=== PATIENT | male | born 1975 | race Caucasian/White ===

== ENCOUNTER 2020-12-01 17:26 | Inpatient (IN) ==
[2020-12-01] MEDS ORDERED: Cefepime HCl 2,000 MG in 0.9 % Sodium Chloride Mini Bag 100 ML IVPB STA (19:01)
[2020-12-01] MEDS ORDERED: 0.9 % Sodium Chloride 1,000 ML IVC ONE (19:01)
[2020-12-01] MEDS ORDERED: Isovue-370 500 ML BOTTLE IVP ONE (19:02)
[2020-12-01] MEDS ORDERED: Ipratropium/Albuterol Neb 3 ML IH ONE (19:02)
[2020-12-01 19:33] LABS: INR 1.2; Prothrombin Time 13.7 Seconds (9.4-12.1)
[2020-12-01 19:42] LABS: Alanine Aminotransferase 26 Units/L (7-52); Albumin 3.4 g/dL (3.5-5.7); Albumin/Globulin Ratio 0.8 (1.1-2.2); Alkaline Phosphatase 75 Units/L (34-104); Aspartate Amino Transferase 35 Units/L (13-39); BUN/Creatinine Ratio 19 (6-26); Bilirubin,Total 0.6 mg/dL (0.3-1.0); Blood Urea Nitrogen 10 mg/dL (6-20); C-Reactive Protein 161 mg/L (Less than 10); Calcium 8.9 mg/dL (8.6-10.3); Carbon Dioxide 27 mEq/L (23-29); Chloride 94 mEq/L (98-107); Globulin 4.1 g/dL (2.4-3.5); Glucose 82 mg/dL (70-105); Osmolality,Calculated 270 (280-300); Potassium 4.2 mEq/L (3.5-5.1); Sodium 131 mEq/L (136-145); Total Protein 7.5 g/dL (6.4-8.9); eGFR For African Americans > 60 (> 60); eGFR For Non-African Americans > 60 (> 60)
[2020-12-01 19:53] LABS: Basophils % 0.2 %; Eosinophils % 0.1 %; Hematocrit 30.3 % (37.5-50.1); Hemoglobin 10.1 g/dL (12.9-16.9); Lymphocytes # 2.5 K/mcL (0.6-4.6); Lymphocytes % 17.9 %; Mean Corpuscular HGB Conc 33.3 g/dL (31.6-35.5); Mean Corpuscular Hemoglobin 27.7 pg (28.0-33.3); Mean Platelet Volume 9.8 fL (9.4-12.4); Monocytes % 7.2 %; Neutrophils # 10.1 K/mcL (1.6-8.9); Platelet Count 187 K/mcL (140-400); Red Blood Count 3.65 M/mcL (4.19-5.50); Red Cell Distribution Width 12.9 % (11.5-14.5); Segmented Neutrophils % 73.6 %; White Blood Count 13.8 K/mcL (4.3-11.1)
[2020-12-01] MEDS ORDERED: Naloxone 0.4 MG/ML INJ IVP PRN ×2 (21:37→23:39)
[2020-12-01] MEDS ORDERED: Ondansetron ODT 4 MG TAB.RAPDIS SL PRN ×2 (21:37→23:39)
[2020-12-01] MEDS ORDERED: 0.9 % Sodium Chloride 1,000 ML IVC SCH ×2 (21:45→23:39)
[2020-12-01] MEDS ORDERED: Vancomycin 1,000 MG VIAL ONE (21:49)
[2020-12-01] MEDS ORDERED: Lidocaine/EPI 1:100k 1% 50 ML VIAL ONE (21:49)
[2020-12-01] MEDS ORDERED: *HR* Midazolam HCl 2 MG/2 ML VIAL ONE (21:50)
[2020-12-01] MEDS ORDERED: *HR* FentaNYL (PF) 100 MCG/2 ML VIAL ONE (21:50)
[2020-12-01] MEDS ORDERED: *HR* Propofol 200 MG/20 ML VIAL IVP ONE (21:50)
[2020-12-01] MEDS ORDERED: Dexamethasone 4 MG/ML VIAL ONE (21:51)
[2020-12-01] MEDS ORDERED: Ondansetron 4 MG/2 ML VIAL ONE (21:51)
[2020-12-01] MEDS ORDERED: Lidocaine -MPF 2% 2 ML VIAL ONE ×2 (21:51→21:53)
[2020-12-01] MEDS ORDERED: *HR* Succinylcholine 200 MG/10 ML VIAL IVP ONE (21:51)
[2020-12-01] MEDS ORDERED: Acetaminophen IV 1,000 MG/100 ML BAG IVPB ONE (21:56)
[2020-12-01] MEDS ORDERED: Famotidine 20 MG/2 ML VIAL ONE (21:56)
[2020-12-01] MEDS ORDERED: Ondansetron 4 MG/2 ML VIAL IVP PRN ×2 (22:02→23:39)
[2020-12-01] MEDS ORDERED: *HR* HYDROMORPHONE 2 MG/ML VIAL ONE (22:22)
[2020-12-01] MEDS: *HR* HYDROmorphone PF 0.5 MG/0.5 ML SYRINGE IVP PRN ×4 (22:55→23:14)
[2020-12-02] MEDS ORDERED: Melatonin 3 MG TABLET PO ONE (01:05)
[2020-12-02 01:24] LABS: Retculocyte # 0.04 M/mcL (0.05-0.10); Reticulocyte % 1.2 % (1.6-2.8)
[2020-12-02 01:25] LABS: Basophils % 0.3 %; Eosinophils % 0.3 %; Hematocrit 30.7 % (37.5-50.1); Lymphocytes # 1.3 K/mcL (0.6-4.6); Lymphocytes % 10.9 %; Mean Corpuscular HGB Conc 32.6 g/dL (31.6-35.5); Mean Corpuscular Hemoglobin 27.2 pg (28.0-33.3); Mean Corpuscular Volume 83.7 fL (83.0-100.0); Mean Platelet Volume 10.1 fL (9.4-12.4); Monocytes # 0.5 K/mcL (0.0-1.3); Monocytes % 3.9 %; Neutrophils # 9.8 K/mcL (1.6-8.9); Platelet Count 175 K/mcL (140-400); Red Blood Count 3.67 M/mcL (4.19-5.50); Red Cell Distribution Width 12.9 % (11.5-14.5); Segmented Neutrophils % 82.6 %; White Blood Count 11.9 K/mcL (4.3-11.1)
[2020-12-02 01:43] LABS: BUN/Creatinine Ratio 16 (6-26); Blood Urea Nitrogen 8 mg/dL (6-20); C-Reactive Protein 161 mg/L (Less than 10); Calcium 8.5 mg/dL (8.6-10.3); Carbon Dioxide 27 mEq/L (23-29); Chloride 102 mEq/L (98-107); Glucose 194 mg/dL (70-105); Osmolality,Calculated 282 (280-300); Potassium 3.8 mEq/L (3.5-5.1); Sodium 134 mEq/L (136-145); eGFR For African Americans > 60 (> 60); eGFR For Non-African Americans > 60 (> 60)
[2020-12-02 01:59] LABS: Thyroid Stimulating Hormone 0.987 mcIU/mL (0.340-5.600)
[2020-12-02 02:09] LABS: Folate 14.7 ng/mL (3.0-16.0)
[2020-12-02] MEDS ORDERED: Cefepime HCl 2,000 MG in Water for inj. (sterile) 20 ML IVP SCH (03:00)
[2020-12-02] MEDS: Cefepime HCl 2,000 MG in Water for inj. (sterile) 20 ML IVP SCH ×3 (03:27→18:12)
[2020-12-02] MEDS ORDERED: Vancomycin 1,250 MG/262.5 ML IV.SOLN IVPB SCH (05:00)
[2020-12-02] MEDS: Vancomycin 1,250 MG/262.5 ML IV.SOLN IVPB SCH ×3 (05:50→20:48)
[2020-12-02] MEDS: *HR* HYDROmorphone (PF) 1 MG/ML SYRINGE IVP PRN ×4 (08:22→20:48)
[2020-12-02] MEDS: Nicotine 2 MG GUM BC PRN (11:14)
[2020-12-02] MEDS: *HR* OxyCODONE/APAP 5/325 TABLET PO PRN (18:13)
[2020-12-02] MEDS ORDERED: *HR* LORazepam 2 MG/ML VIAL IVP ONE (23:21)
[2020-12-03] MEDS: *HR* OxyCODONE/APAP 5/325 TABLET PO PRN (00:55)
[2020-12-03] MEDS: *HR* HYDROmorphone (PF) 1 MG/ML SYRINGE IVP PRN (02:09)
[2020-12-03] MEDS: Cefepime HCl 2,000 MG in Water for inj. (sterile) 20 ML IVP SCH ×2 (02:10→11:56)
[2020-12-03 04:29] LABS: Basophils % 0.3 %; Eosinophils # 0.1 K/mcL (0.0-0.6); Eosinophils % 0.6 %; Hemoglobin 9.9 g/dL (12.9-16.9); Immature Granulocytes % 4.6 % (0-4); Lymphocytes # 2.1 K/mcL (0.6-4.6); Lymphocytes % 21.3 %; Mean Corpuscular HGB Conc 31.9 g/dL (31.6-35.5); Mean Corpuscular Hemoglobin 27.8 pg (28.0-33.3); Mean Corpuscular Volume 87.1 fL (83.0-100.0); Mean Platelet Volume 10.6 fL (9.4-12.4); Monocytes # 0.6 K/mcL (0.0-1.3); Monocytes % 6.2 %; Neutrophils # 6.5 K/mcL (1.6-8.9); Platelet Count 197 K/mcL (140-400); Red Blood Count 3.56 M/mcL (4.19-5.50); Red Cell Distribution Width 12.7 % (11.5-14.5); White Blood Count 9.7 K/mcL (4.3-11.1)
[2020-12-03 04:49] LABS: BUN/Creatinine Ratio 21 (6-26); Blood Urea Nitrogen 12 mg/dL (6-20); Calcium 8.7 mg/dL (8.6-10.3); Carbon Dioxide 26 mEq/L (23-29); Chloride 104 mEq/L (98-107); Glucose 115 mg/dL (70-105); Osmolality,Calculated 283 (280-300); Potassium 3.8 mEq/L (3.5-5.1); Sodium 136 mEq/L (136-145); eGFR For African Americans > 60 (> 60); eGFR For Non-African Americans > 60 (> 60)
[2020-12-03] MEDS: Vancomycin 1,500 MG/265 ML IV.SOLN IVPB SCH ×3 (05:23→20:48)
[2020-12-03] MEDS ORDERED: *HR* OxyCODONE/APAP 5/325 TABLET PO PRN (08:25)
[2020-12-03] MEDS: Cyanocobalamin (B-12) 1,000 MCG TABLET PO SCH (08:45)
[2020-12-03] MEDS: Nicotine 2 MG GUM BC PRN (08:45)
[2020-12-03] MEDS: Methadone Oral Concentrate 50 MG/5 ML UDC PO SCH (10:36)
[2020-12-03] MEDS: *HR* Heparin 5,000 UNIT/ML VIAL SQ SCH (18:31)
[2020-12-04 05:28] LABS: Hematocrit 35.2 % (37.5-50.1); Hemoglobin 11.1 g/dL (12.9-16.9); Mean Corpuscular HGB Conc 31.5 g/dL (31.6-35.5); Mean Corpuscular Hemoglobin 27.7 pg (28.0-33.3); Mean Corpuscular Volume 87.8 fL (83.0-100.0); Mean Platelet Volume 10.8 fL (9.4-12.4); Platelet Count 307 K/mcL (140-400); Red Blood Count 4.01 M/mcL (4.19-5.50); White Blood Count 7.3 K/mcL (4.3-11.1)
[2020-12-04 05:56] LABS: BUN/Creatinine Ratio 25 (6-26); Blood Urea Nitrogen 15 mg/dL (6-20); Calcium 9.1 mg/dL (8.6-10.3); Carbon Dioxide 28 mEq/L (23-29); Chloride 101 mEq/L (98-107); Glucose 70 mg/dL (70-105); Osmolality,Calculated 283 (280-300); Potassium 4.1 mEq/L (3.5-5.1); Sodium 137 mEq/L (136-145); eGFR For African Americans > 60 (> 60); eGFR For Non-African Americans > 60 (> 60)
[2020-12-04 06:02] LABS: Lymphocytes # 3.5 K/mcL (0.6-4.6); Monocytes # 0.2 K/mcL (0.0-1.3); Neutrophils # 3.2 K/mcL (1.6-8.9); Reactive Lymphocytes Present (Not Present)
[2020-12-04 06:03] LABS: Platelet Estimate Normal (Normal)
[2020-12-04] MEDS: *HR* Heparin 5,000 UNIT/ML VIAL SQ SCH ×2 (06:05→18:03)
[2020-12-04] MEDS: Vancomycin 1,500 MG/265 ML IV.SOLN IVPB SCH (06:08)
[2020-12-04] MEDS: Cyanocobalamin (B-12) 1,000 MCG TABLET PO SCH (08:15)
[2020-12-04] MEDS: Methadone Oral Concentrate 50 MG/5 ML UDC PO SCH (08:15)
[2020-12-04] MEDS: Nicotine 2 MG GUM BC PRN (09:05)
[2020-12-04] MEDS ORDERED: Vancomycin 1,250 MG/262.5 ML IV.SOLN IVPB SCH (14:00)
[2020-12-04] MEDS ORDERED: Lidocaine/EPI 1:100k 1% 50 ML VIAL ONE ×2 (16:07→18:31)
[2020-12-04] MEDS ORDERED: *HR* Propofol 200 MG/20 ML VIAL IVP ONE (18:38)
[2020-12-04] MEDS ORDERED: Lidocaine -MPF 2% 2 ML VIAL ONE (18:38)
[2020-12-04] MEDS ORDERED: Dexamethasone 4 MG/ML VIAL ONE (19:09)
[2020-12-04] MEDS ORDERED: Ondansetron 4 MG/2 ML VIAL ONE (19:09)
[2020-12-04] MEDS ORDERED: Ketorolac 30 MG/ML VIAL ONE (19:11)
[2020-12-04] MEDS ORDERED: Acetaminophen IV 1,000 MG/100 ML BAG IVPB ONE (19:48)
[2020-12-04] MEDS ORDERED: Ondansetron ODT 4 MG TAB.RAPDIS SL PRN (20:18)
[2020-12-04] MEDS ORDERED: Naloxone 0.4 MG/ML INJ IVP PRN (20:18)
[2020-12-04] MEDS: Vancomycin 1,250 MG/262.5 ML IV.SOLN IVPB SCH (23:13)
[2020-12-05] MEDS: *HR* Heparin 5,000 UNIT/ML VIAL SQ SCH ×2 (06:23→14:41)
[2020-12-05] MEDS: Vancomycin 1,250 MG/262.5 ML IV.SOLN IVPB SCH ×2 (06:24→13:16)
[2020-12-05 07:01] VITALS: BP 111/73
[2020-12-05] MEDS ORDERED: Cyanocobalamin (B-12) 1,000 MCG TABLET PO SCH (09:00)
[2020-12-05] MEDS ORDERED: Methadone Oral Concentrate 50 MG/5 ML UDC PO SCH (09:00)
[2020-12-05] MEDS: Nicotine 2 MG GUM BC PRN ×2 (10:38→13:14)
== END 2020-12-05 15:05 | disposition left against medical advice (07) | DRG 710 ==
LOC: 3NENU 17:26 → EMEROOARM 17:26 → SUATTDRO 21:42 → 3NENU 21:55 → SUATTDRO 12-03 17:15
PROVIDERS: ADMIT Student in an Organized Health Care Education/Training Program; ATTEND Internal Medicine

== ENCOUNTER 2020-12-06 09:28 | Observation (INO) ==
[2020-12-06] MEDS ORDERED: Vancomycin 1,250 MG/262.5 ML IV.SOLN IVPB ONE (12:00)
[2020-12-06 12:27] LABS: Basophils # 0.1 K/mcL (0.0-0.2); Eosinophils # 0.1 K/mcL (0.0-0.6); Eosinophils % 1.2 %; Hematocrit 35.9 % (37.5-50.1); Hemoglobin 11.4 g/dL (12.9-16.9); Immature Granulocytes % 7.2 % (0-4); Lymphocytes # 2.9 K/mcL (0.6-4.6); Lymphocytes % 31.6 %; Mean Corpuscular HGB Conc 31.8 g/dL (31.6-35.5); Mean Corpuscular Hemoglobin 27.5 pg (28.0-33.3); Mean Corpuscular Volume 86.7 fL (83.0-100.0); Mean Platelet Volume 9.8 fL (9.4-12.4); Monocytes # 0.5 K/mcL (0.0-1.3); Monocytes % 5.8 %; Neutrophils # 4.8 K/mcL (1.6-8.9); Platelet Count 346 K/mcL (140-400); Red Blood Count 4.14 M/mcL (4.19-5.50); Segmented Neutrophils % 53.2 %; White Blood Count 9.1 K/mcL (4.3-11.1)
[2020-12-06 12:31] LABS: BUN/Creatinine Ratio 24 (6-26); Blood Urea Nitrogen 19 mg/dL (6-20); Calcium 9.4 mg/dL (8.6-10.3); Carbon Dioxide 29 mEq/L (23-29); Chloride 101 mEq/L (98-107); Glucose 103 mg/dL (70-105); Osmolality,Calculated 287 (280-300); Sodium 137 mEq/L (136-145); eGFR For African Americans > 60 (> 60); eGFR For Non-African Americans > 60 (> 60)
[2020-12-06] MEDS ORDERED: Ondansetron 4 MG/2 ML VIAL IVP PRN (13:41)
[2020-12-06] MEDS ORDERED: Naloxone 0.4 MG/ML INJ IVP PRN (13:41)
[2020-12-06] MEDS ORDERED: Melatonin 3 MG TABLET PO PRN (13:41)
[2020-12-06] MEDS ORDERED: *HR* OxyCODONE/APAP 10/325 TABLET PO PRN ×2 (13:44→20:00)
[2020-12-06] MEDS ORDERED: *HR* OxyCODONE/APAP 5/325 TABLET PO PRN ×2 (13:44→20:00)
[2020-12-06 14:43] LABS: C-Reactive Protein 20 mg/L (Less than 10)
[2020-12-06] MEDS ORDERED: Nicotine 21 MG PATCH.TD24 TD SCH (16:30)
[2020-12-06] MEDS: Nicotine 2 MG GUM BC PRN (17:15)
[2020-12-06] MEDS: Lactobacillus 1 EACH CAP.SPRINK PO SCH (21:48)
[2020-12-06] MEDS: Vancomycin 1,250 MG/262.5 ML IV.SOLN IVPB SCH (21:48)
[2020-12-07 01:43] LABS: Hematocrit 32.9 % (37.5-50.1); Hemoglobin 10.5 g/dL (12.9-16.9); Mean Corpuscular HGB Conc 31.9 g/dL (31.6-35.5); Mean Corpuscular Hemoglobin 28.3 pg (28.0-33.3); Mean Corpuscular Volume 88.7 fL (83.0-100.0); Mean Platelet Volume 9.4 fL (9.4-12.4); Monocytes # 0.4 K/mcL (0.0-1.3); Platelet Count 258 K/mcL (140-400); Red Blood Count 3.71 M/mcL (4.19-5.50); Red Cell Distribution Width 13.1 % (11.5-14.5); White Blood Count 6.7 K/mcL (4.3-11.1)
[2020-12-07 01:55] LABS: INR 1.1; Prothrombin Time 12.3 Seconds (9.4-12.1)
[2020-12-07 01:58] LABS: BUN/Creatinine Ratio 36 (6-26); Blood Urea Nitrogen 28 mg/dL (6-20); Calcium 8.6 mg/dL (8.6-10.3); Carbon Dioxide 29 mEq/L (23-29); Chloride 102 mEq/L (98-107); Glucose 113 mg/dL (70-105); Osmolality,Calculated 286 (280-300); Potassium 4.5 mEq/L (3.5-5.1); Sodium 135 mEq/L (136-145); eGFR For African Americans > 60 (> 60); eGFR For Non-African Americans > 60 (> 60)
[2020-12-07 02:38] LABS: Lymphocytes # 1.5 K/mcL (0.6-4.6); Neutrophils # 4.8 K/mcL (1.6-8.9); Platelet Estimate Normal (Normal); Reactive Lymphocytes Present (Not Present)
[2020-12-07] MEDS: Vancomycin 1,250 MG/262.5 ML IV.SOLN IVPB SCH (03:59)
[2020-12-07 06:23] LABS: Amphetamine Screen,Urine Positive ng/mL (Cutoff=1000); Barbiturate Screen,Urine Negative ng/mL (Cutoff=200); Benzodiazepines Screen,Urine Negative ng/mL (Cutoff=200); Cannabinoid Screen,Urine Negative ng/mL (Cutoff = 50); Cocaine Screen,Urine Negative ng/mL (Cutoff= 300); Opiate Screen,Urine Negative ng/mL (Cutoff=300); Phencyclidine Screen,Urine Negative ng/mL (Cutoff=25)
[2020-12-07 06:50] VITALS: BP 114/68
[2020-12-07] MEDS: Lactobacillus 1 EACH CAP.SPRINK PO SCH (08:09)
[2020-12-07] MEDS: Nicotine 2 MG GUM BC PRN (08:55)
[2020-12-07] MEDS ORDERED: Methadone Oral Concentrate 50 MG/5 ML UDC PO SCH (09:00)
== END 2020-12-07 10:35 | disposition home or self-care (01) ==
LOC: 3NENU 09:28 → EMEROOARM 09:28 → 3NENU 14:53
PROVIDERS: ADMIT Internal Medicine; ATTEND Internal Medicine

== ENCOUNTER 2020-12-11 08:49 | Observation (INO) ==
[2020-12-11] MEDS ORDERED: Ondansetron 4 MG/2 ML VIAL IVP ONE (09:25)
[2020-12-11 10:14] LABS: Basophils % 0.3 %; Eosinophils % 0.4 %; Hematocrit 34.7 % (37.5-50.1); Hemoglobin 11.4 g/dL (12.9-16.9); Immature Granulocytes % 0.7 % (0-4); Lymphocytes % 12.9 %; Mean Corpuscular HGB Conc 32.9 g/dL (31.6-35.5); Mean Corpuscular Hemoglobin 27.7 pg (28.0-33.3); Mean Corpuscular Volume 84.4 fL (83.0-100.0); Mean Platelet Volume 9.9 fL (9.4-12.4); Monocytes # 0.3 K/mcL (0.0-1.3); Monocytes % 4.4 %; Neutrophils # 6.2 K/mcL (1.6-8.9); Platelet Count 190 K/mcL (140-400); Red Blood Count 4.11 M/mcL (4.19-5.50); Red Cell Distribution Width 13.2 % (11.5-14.5); Segmented Neutrophils % 81.3 %; White Blood Count 7.6 K/mcL (4.3-11.1)
[2020-12-11 10:30] LABS: Calcium 8.8 mg/dL (8.6-10.3); Potassium 5.7 mEq/L (3.5-5.1)
[2020-12-11] MEDS ORDERED: 0.9 % Sodium Chloride 1,000 ML IVC ONE (11:03)
[2020-12-11] MEDS ORDERED: Insulin Regular, Human 100 UNIT/ML SUBQ ONE (11:15)
[2020-12-11] MEDS ORDERED: Calcium Gluconate 1gm/50mL 1 GM/50 ML BAG IVPB PRN (11:15)
[2020-12-11] MEDS ORDERED: Isovue-370 500 ML BOTTLE IVP ONE (11:30)
[2020-12-11] MEDS ORDERED: Ondansetron 4 MG/2 ML VIAL IVP PRN (16:23)
[2020-12-11] MEDS ORDERED: Melatonin 3 MG TABLET PO PRN (16:23)
[2020-12-11] MEDS ORDERED: Acetaminophen 325 MG TABLET PO PRN (16:23)
[2020-12-11] MEDS ORDERED: Naloxone 0.4 MG/ML INJ IVP PRN (16:23)
[2020-12-11] MEDS ORDERED: *HR* HYDROcodone/Acet 5/325 mg TABLET PO PRN (16:23)
[2020-12-11] MEDS ORDERED: 0.9 % Sodium Chloride 1,000 ML IVC SCH (16:30)
[2020-12-11 16:50] LABS: Albumin 2.9 g/dL (3.5-5.7); Albumin/Globulin Ratio 0.9 (1.1-2.2); Bilirubin,Direct 0.2 mg/dL (0.0-0.2); Bilirubin,Indirect 0.4 mg/dL (0.0-1.0); Bilirubin,Total 0.6 mg/dL (0.3-1.0); Globulin 3.2 g/dL (2.4-3.5); Magnesium 2.1 mg/dL (1.6-2.6); Phosphorous 4.6 mg/dL (2.7-4.5); Total Protein 6.1 g/dL (6.4-8.9)
[2020-12-11 17:46] LABS: Bilirubin,Urine Negative (Negative); Blood,Urine Moderate (Negative); Clarity,Urine Clear (Clear); Color,Urine Yellow (Yellow); Glucose,Urine (UA) Normal (Normal); Hyaline Casts,Urine Many per lpf (None Seen); Ketones,Urine Negative (Negative); Leukocyte Esterase,Urine Negative (Negative); Mucus,Urine Few per lpf (None-Few); Nitrite,Urine Negative (Negative); PH,Urine 5.5 pH Units (5.0-8.0); Protein,Urine 70 mg/dL (Neg-Trace); RBC,Urine 15-30 per hpf (0-3); Specific Gravity,Urine 1.019 (1.010-1.025); Urobilinogen,Urine Normal (Normal)
[2020-12-11 18:05] LABS: Amphetamine Screen,Urine Positive ng/mL (Cutoff=1000); Barbiturate Screen,Urine Negative ng/mL (Cutoff=200); Benzodiazepines Screen,Urine Negative ng/mL (Cutoff=200); Cannabinoid Screen,Urine Positive ng/mL (Cutoff = 50); Cocaine Screen,Urine Negative ng/mL (Cutoff= 300); Opiate Screen,Urine Positive ng/mL (Cutoff=300); Phencyclidine Screen,Urine Negative ng/mL (Cutoff=25)
[2020-12-11] MEDS: Doxycycline 100 MG CAPSULE PO SCH (20:40)
[2020-12-11] MEDS: Lactobacillus 1 EACH CAP.SPRINK PO SCH (20:40)
[2020-12-11] MEDS ORDERED: Ipratropium/Albuterol Neb 3 ML IH PRN (21:36)
[2020-12-11 21:53] LABS: Potassium 5.5 mEq/L (3.5-5.1)
[2020-12-11] MEDS: 0.9 % Sodium Chloride 1,000 ML IVC SCH (22:19)
[2020-12-12 02:07] LABS: Basophils % 0.2 %; Eosinophils % 0.7 %; Hematocrit 32.1 % (37.5-50.1); Hemoglobin 10.3 g/dL (12.9-16.9); Immature Granulocytes % 0.9 % (0-4); Lymphocytes # 1.6 K/mcL (0.6-4.6); Lymphocytes % 35.9 %; Mean Corpuscular HGB Conc 32.1 g/dL (31.6-35.5); Mean Corpuscular Hemoglobin 27.1 pg (28.0-33.3); Mean Corpuscular Volume 84.5 fL (83.0-100.0); Mean Platelet Volume 10.6 fL (9.4-12.4); Monocytes # 0.3 K/mcL (0.0-1.3); Monocytes % 6.9 %; Neutrophils # 2.4 K/mcL (1.6-8.9); Platelet Count 164 K/mcL (140-400); Red Cell Distribution Width 13.2 % (11.5-14.5); Segmented Neutrophils % 55.4 %; White Blood Count 4.3 K/mcL (4.3-11.1)
[2020-12-12 02:29] LABS: Albumin 2.7 g/dL (3.5-5.7); Bilirubin,Total 0.5 mg/dL (0.3-1.0); Calcium 8.5 mg/dL (8.6-10.3); Globulin 2.8 g/dL (2.4-3.5); Magnesium 2.1 mg/dL (1.6-2.6); Phosphorous 4.4 mg/dL (2.7-4.5); Potassium 4.9 mEq/L (3.5-5.1); Total Protein 5.5 g/dL (6.4-8.9)
[2020-12-12] MEDS: 0.9 % Sodium Chloride 1,000 ML IVC SCH ×3 (02:43→19:37)
[2020-12-12] MEDS ORDERED: hydrOXYzine pamoate 25 MG CAPSULE PO ONE (05:08)
[2020-12-12] MEDS ORDERED: Amoxicillin/Clavulanate 250 MG TABLET PO SCH (08:00)
[2020-12-12] MEDS ORDERED: Nicotine 21 MG PATCH.TD24 TD SCH (09:00)
[2020-12-12] MEDS ORDERED: Methadone Oral Concentrate 50 MG/5 ML UDC PO SCH (09:00)
[2020-12-12] MEDS: Lactobacillus 1 EACH CAP.SPRINK PO SCH ×2 (09:26→19:38)
[2020-12-12] MEDS: Doxycycline 100 MG CAPSULE PO SCH ×2 (09:26→19:38)
[2020-12-12] MEDS: Multivit/Ca/Min/Fe/FA 1 TAB TABLET PO SCH (09:26)
[2020-12-12] MEDS ORDERED: Nicotine 2 MG GUM BC PRN (09:40)
[2020-12-12 11:46] LABS: Uric Acid 9.3 mg/dL (2.3-7.6)
[2020-12-12 12:24] LABS: Sodium, Urine 31.5 mEq/L
[2020-12-13] MEDS: 0.9 % Sodium Chloride 1,000 ML IVC SCH (03:58)
[2020-12-13 04:53] LABS: Calcium 8.1 mg/dL (8.6-10.3); Potassium 4.9 mEq/L (3.5-5.1)
[2020-12-13] MEDS: Methadone Oral Concentrate 50 MG/5 ML UDC PO SCH ×2 (06:02→10:31)
[2020-12-13 07:48] VITALS: BP 156/89
[2020-12-13] MEDS: Doxycycline 100 MG CAPSULE PO SCH (09:59)
[2020-12-13] MEDS: Lactobacillus 1 EACH CAP.SPRINK PO SCH (09:59)
[2020-12-13] MEDS: Multivit/Ca/Min/Fe/FA 1 TAB TABLET PO SCH (10:00)
== END 2020-12-13 11:15 | disposition home or self-care (01) ==
LOC: EMEROOARM 08:49 → 2ANU 08:49 → SUATTDRO 13:06 → 2ANU 13:48
PROVIDERS: ADMIT Internal Medicine; ATTEND Internal Medicine

== ENCOUNTER 2021-02-26 01:50 | Inpatient (IN) ==
[2021-02-26] MEDS ORDERED: Ketorolac 15 MG/ML VIAL IVP ONE (03:01)
[2021-02-26] MEDS ORDERED: Clindamycin 600 MG/50 ML 600 MG/50 ML IV.SOLN IVPB ONE (03:04)
[2021-02-26 04:03] LABS: Basophils % 0.3 %; Eosinophils # 0.1 K/mcL (0.0-0.6); Eosinophils % 1.2 %; Hematocrit 34.1 % (37.5-50.1); Hemoglobin 11.2 g/dL (12.9-16.9); Immature Granulocytes % 0.3 % (0-4); Lymphocytes # 2.7 K/mcL (0.6-4.6); Lymphocytes % 25.2 %; Mean Corpuscular HGB Conc 32.8 g/dL (31.6-35.5); Mean Corpuscular Hemoglobin 27.1 pg (28.0-33.3); Mean Corpuscular Volume 82.6 fL (83.0-100.0); Mean Platelet Volume 9.7 fL (9.4-12.4); Monocytes % 9.7 %; Neutrophils # 6.8 K/mcL (1.6-8.9); Platelet Count 267 K/mcL (140-400); Red Blood Count 4.13 M/mcL (4.19-5.50); Red Cell Distribution Width 13.2 % (11.5-14.5); Segmented Neutrophils % 63.3 %; White Blood Count 10.8 K/mcL (4.3-11.1)
[2021-02-26 04:24] LABS: Calcium 9.2 mg/dL (8.6-10.3); Potassium 3.6 mEq/L (3.5-5.1)
[2021-02-26] MEDS ORDERED: cloNIDine HCL 0.1 MG TABLET PO ONE ×2 (05:14→09:27)
[2021-02-26] MEDS ORDERED: Ondansetron 4 MG/2 ML VIAL IVP ONE (05:15)
[2021-02-26] MEDS ORDERED: Naloxone 0.4 MG/ML INJ IVP PRN (05:23)
[2021-02-26] MEDS: Nicotine 2 MG GUM BC PRN ×2 (05:23→10:27)
[2021-02-26] MEDS ORDERED: Ondansetron 4 MG/2 ML VIAL IVP PRN (05:23)
[2021-02-26] MEDS ORDERED: Acetaminophen 325 MG TABLET PO PRN (05:23)
[2021-02-26] MEDS ORDERED: 0.9 % Sodium Chloride 1,000 ML IVC SCH (05:30)
[2021-02-26] MEDS: Clindamycin 600 MG/50 ML 600 MG/50 ML IV.SOLN IVPB SCH ×2 (07:10→15:29)
[2021-02-26 07:36] LABS: INR 1.1; Prothrombin Time 12.6 Seconds (9.4-12.1)
[2021-02-26 11:36] VITALS: BP 145/92
[2021-02-26] MEDS ORDERED: *HR* LORazepam 2 MG/ML VIAL IVP ONE (12:09)
[2021-02-26 15:00] LABS: Amphetamine Screen,Urine Negative ng/mL (Cutoff=1000); Barbiturate Screen,Urine Negative ng/mL (Cutoff=200); Benzodiazepines Screen,Urine Negative ng/mL (Cutoff=200); Cannabinoid Screen,Urine Negative ng/mL (Cutoff = 50); Cocaine Screen,Urine Negative ng/mL (Cutoff= 300); Opiate Screen,Urine Negative ng/mL (Cutoff=300); Phencyclidine Screen,Urine Negative ng/mL (Cutoff=25)
[2021-02-26] MEDS ORDERED: cloNIDine HCL 0.1 MG TABLET PO SCH (15:00)
== END 2021-02-26 15:56 | disposition left against medical advice (07) | DRG 351 ==
LOC: EMEROOARM 01:50 → 3BNU 01:50 → SUATTDRO 05:47 → 3BNU 05:59
PROVIDERS: ADMIT Student in an Organized Health Care Education/Training Program; ATTEND Internal Medicine